=== PATIENT | male | born 1995 | race Caucasian/White ===

== ENCOUNTER 2022-01-27 21:10 | Emergency (ER) | payer MEDICAID ==
[~2022-01-27] VITALS: Ht 175.3 cm; Wt 100.9 kg
--- NOTE | 2022-01-27 21:20 | NUR ---
CALLED IN TRIAGE AND OUTSIDE, NO ANSWER.
[2022-01-27 21:32] VITALS: BP 172/105
--- NOTE | 2022-01-27 21:35 | NUR ---
PT TO LOBBY.
--- NOTE | 2022-01-27 22:35 | NUR ---
CALLED PT IN LOBBY AND OUTSIDE, NO ANSWER.
== END 2022-01-27 22:40 | disposition left against medical advice (07) ==
LOC: MED 21:10
DX: Z53.21 Procedure and treatment not carried out due to patient leaving prior to being seen by health care provider (principal)